=== PATIENT | female | born 1970 | race Caucasian/White ===

== ENCOUNTER 2018-07-14 18:44 | Observation (INO) ==
[2018-07-15] MEDS ORDERED: Acetaminophen 500 MG Tablet PO PRN (06:27)
[2018-07-15] MEDS ORDERED: Sodium Chloride 0.9% 2 ML Flush PRN IV.FLUSH (06:28)
[2018-07-15] MEDS ORDERED: Sodium Chloride 0.9% 2 ML Flush BID IV.FLUSH SCH (09:00)
[2018-07-15] MEDS ORDERED: buPROPion 150 MG 12 HR Tablet PO SCH (09:00)
--- NOTE | 2018-07-15 09:58 | P.HPCA ---
History of Present Illness Primary Care Physician: Dr. Christopher Hodgson Chief Complaint: Chest pressure and palpations History of Present Illness: 48 year old male with history of depression presents to ER for further evaluation of chest pressure and palpitations. Onset 10 AM. Location substernal. Characterized as pressure. No radiation. Associated symptoms included dizziness, fluttering sensation in her chest, and fatigue. 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 Wore Holter monitor in the past, reported to be unremarkable. Social history No known hypertension, hyperlipidemia, diabetes. Lifelong non-smoker. Rare drink of wine every 2-3 weeks. No recreational drug use. Works as a nursing technician. Endorses sedentary lifestyle due to exertional fatigue and dyspnea. Family history Noncontributory for early onset cardiovascular disease. Endorses strong family history of arrhythmogenic right ventricular dysplasia. Mother had AICD. Sister AICD placed age 32. Another sister, a brother, and paternal grandmother all share diagnoses as well. Does not follow with a integrity specialist, denies ARVD diagnoses for her, reports not completing [facility] genetic testing as recommended. - Diagnosis (1) Atypical chest pain (2) Depression Review of Systems All other systems reviewed negative except as stated in HPI PMFSH - History History Provided By: Patient - Medical History Medical History: Medical History (Last Reviewed 07/15/18 @ 09:53 by REECE Kimball) Cervical vertebral fusion Depression - Surgical History Surgical History: Surgical History (Last Reviewed 07/15/18 @ 09:53 by REECE Kimball) H/O breast augmentation History of endometrial ablation Hx of cholecystectomy Hx of tonsillectomy - Family History Family History: Family History (Last Updated 07/15/18 @ 09:54 by REECE Kimball) Mother Arrhythmogenic right ventricular dysplasia Sister Arrhythmogenic right ventricular dysplasia Sister Arrhythmogenic right ventricular dysplasia Brother Arrhythmogenic right ventricular dysplasia Grandparent Arrhythmogenic right ventricular dysplasia - Social History I have reviewed the patient's Social History: Yes - Tobacco History Second Hand Smoke Exposure: No Tobacco Use In Past 30 Days: No Smoking Status: Never smoker - Alcohol History How Often Do You Have a Drink Containing Alcohol: Monthly or less - Substance Use History Substance History: No History of Abuse - Travel History History of Recent Travel: No Recent Travel in the [place] Within the Last 8 Weeks: No Recent Travel Out of the Country Within the Last 8 Weeks: No Medications and Allergies Active Medications: Active Medications Acetaminophen (Tylenol) 500 mg PO Q4H PRN PRN Reason: HEADACHE Last Admin: 07/15/18 06:33 Dose: 500 mg Bupropion HCl (Wellbutrin Sr) 150 mg PO BID [facility] Last Admin: 07/15/18 09:32 Dose: 150 mg Ondansetron HCl (Zofran Inj) 4 mg IV.PUSH Q6H PRN PRN Reason: NA Sodium Chloride (Ns Flush) 2 ml IV.FLUSH BID RICKY Last Admin: 07/15/18 09:33 Dose: 2 ml Sodium Chloride (Ns Flush) 2 ml IV.FLUSH PRN PRN PRN Reason: FLUSH AFTER USING IV ACCESS Allergies Allergy/AdvReac Type Severity Reaction Status Date / Time naproxen [From Naprosyn] Allergy Blister Verified 07/14/18 19:11 Home Medications Medication Instructions Recorded Confirmed Type bupropion HCl [Wellbutrin XL] 300 mg PO QAM 07/14/18 07/15/18 History Exam Vital signs: Vital Signs 07/15/18 04:00 07/15/18 07:35 Temperature 97.9 F 97.9 F Pulse Rate 74 68 Respiratory Rate 12 16 Blood Pressure 99/59 L 105/64 Pulse Oximetry 97 99 Intake & Output 07/14/18 07/15/18 07/15/18 18:59 06:59 18:59 Weight 86 kg Other: Date of Last Bowel Movement 07/13/18 Weight On Admission 86 kg Narrative: GENERAL: Alert WN, WD, NAD, pleasant, overweight female HEAD: NC, AT EYES: Sclera clear, conjunctiva without injection, pupils equal and round ENT: Mucous membranes pink and moist NECK: Supple, no masses, trachea midline CV: RRR, without murmur, rub, gallop, no JVD, S1-S2 no S3-S4. No carotid bruits. RESP: Clear lungs throughout bilateral, no crackles, wheeze, rhonchi, symmetrical chest rise, nonlabored, able to speak in full sentences ABD: Soft, NT, ND, no masses, positive bowel tones EXT: Pulses +2x4, no dependent edema MS: Normal tone x4 extremities, nontender, no obvious deformities, full range of motion NEURO: Motor strength 5/5 PSYCH: A+O x3, pleasant affect, appropriate speech, mood, insight and judgment SKIN: Normal turgor, normal texture, no lesions, no rashes, brisk cap refill, even hair distribution Results Cardiac Enzymes 07/15/18 Range/Units 01:18 Troponin I Less than 0.02 L (0.02-0.05) ng/mL Intake and Output 07/14/18 07/15/18 07/15/18 22:59 06:59 14:59 Other: Date of Last Bowel Movement 07/13/18 Weight 86 kg Weight On Admission 86 kg EKG interpretations - EKG EKG results cardiology: sinus rhythm (Incomplete right bundle branch block), normal axis, normal QRS, normal ST/T Caprini VTE Risk Assessment Caprini VTE Risk Assessment: No/Low Risk (score <= 1) Caprini Risk Assessment Model: Point Value = 1 Point Value = 2 Point Value = 3 Point Value = 5 Age 41-60 Minor surgery BMI > 25 kg/m2 Swollen legs Varicose veins or History of unexplained or recurrent spontaneous Oral contraceptives or hormone replacement Sepsis (< 1 month) Serious lung disease, including pneumonia (< 1 month) Abnormal pulmonary function Acute myocardial infarction Congestive heart failure (< 1 month) History of inflammatory bowel disease Medical patient at bed rest Age 61-74 Arthroscopic surgery Major open surgery (> 45 min) Laparoscopic surgery (> 45 min) Malignancy Confined to bed (> 72 hours) Immobilizing plaster cast Central venous access Age >= 75 History of VTE Family history of VTE Factor V Leiden Prothrombin [id number] Lupus anticoagulant Anticardiolipin antibodies Elevated serum homocysteine Heparin-induced thrombocytopenia Other congenital or acquired thrombophilia Stroke (< 1 month) Elective arthroplasty Hip, pelvis, or leg fracture Acute spinal cord injury (< 1 month) Prophylaxis Regimen: Total Risk Factor Score Risk Level Prophylaxis Regimen 0-1 Low Early ambulation 2 Moderate Order ONE of the following: *Sequential Compression Device (SCD) *Heparin 5000 units SQ BID 3-4 Higher Order ONE of the following medications: *Heparin 5000 units SQ TID *Enoxaparin/Lovenox 40 mg SQ daily (WT < 150 kg, CrCl > 30 mL/min) *Enoxaparin/Lovenox 30 mg SQ daily (WT < 150 kg, CrCl > 10-29 mL/min) *Enoxaparin/Lovenox 30 mg SQ BID (WT < 150 kg, CrCl > 30 mL/min) AND/OR *Sequential Compression Device (SCD) 5 or more Highest Order ONE of the following medications: *Heparin 5000 units SQ TID (Preferred with Epidurals) *Enoxaparin/Lovenox 40 mg SQ daily (WT < 150 kg, CrCl > 30 mL/min) *Enoxaparin/Lovenox 30 mg SQ daily (WT < 150 kg, CrCl > 10-29 mL/min) *Enoxaparin/Lovenox 30 mg SQ BID (WT < 150 kg, CrCl > 30 mL/min) AND *Sequential Compression Device (SCD) Assessment and Plan - Assessment (1) Atypical chest pain Code(s): R07.89 - Other chest pain Status: Acute Plan: Admitted to chest pain center. ACS ruled out 3 sets of EKGs and cardiac enzymes. Telemetry reviewed. No acute findings. Will be seen and evaluated by Dr. Gregg Collins. Likely will proceed with cardiac testing after evaluation by integrity specialist. Strongly encouraged to establish with a integrity specialist for further evaluation of her concern over strong family history of arrhythmogenic right ventricular dysplasia. (2) Depression Code(s): F32.9 - Major depressive disorder, single episode, unspecified Status : Chronic Plan: Continue Wellbutrin.
[2018-07-15 11:57] VITALS: BP 109/64; PULSE 75; RESP 18; TEMP 98.5; O2SAT 98
--- NOTE | 2018-07-15 16:30 | TR ---
Date Performed: 07/15/2018 Time Performed: 14:51:26 DOCTOR: Gregg Collins DRUG LIST: CLINICAL HISTORY: CHEST PAIN REASON FOR TEST: REASON FOR ENDING: OBSERVATION: CONCLUSION: Ovidio protocol completed. Stopped sec to leg fatigue and reaching target heart rate. Maximum YH=779 Max HR Achieved=86.0% Maximum DA=064/88 Total Exercise Time=6:45. No ectopy. No st t segment changes. Normal bp response. Reprod left anterior chest pain described as mild, sharp pain, no radiation without associated symptoms. Discomfort resolved quickly in recovery, 2 minutes into rec overy chest discomfort improved described as "a light lingering ache" resolved completely within 4 mi nutes of recovery. Otherwise recovery quick and unremarkable. COMMENTS: Conclusion: Normal treadmill exercise. No evidence of ischemia.
--- NOTE | 2018-07-15 16:56 | ECG ---
Date Performed: 07/15/2018 Time Performed: 01:41:34 PTAGE: 48 years EKG: Sinus rhythm POSSIBLE LEFT ATRIAL ENLARGEMENT LOW QRS VOLTAGE IN PRECORDIAL LEADS INCOMPLETE RIGHT BUNDLE BRANCH BLOCK BORDERLINE ECG NO PREVIOUS TRACING DOCTOR: Gregg Collins Interpretating Date/Time 07/15/2018 16:55:36
== END 2018-07-15 20:24 | disposition home or self-care (01) ==
LOC: NEPFCDU 23:20 → NEDDLT 23:20
PROVIDERS: ADMIT Internal Medicine Cardiovascular Disease; ATTEND Internal Medicine Cardiovascular Disease